=== PATIENT | female | born 1990 | race Two or more races ===

== ENCOUNTER 2024-04-24 06:09 | Outpatient (REF) | payer OTHER, SELFPAY | END 2024-04-24 06:10 | disposition home or self-care (01) | LOC: HO.UMASIMG 06:09 | PROVIDERS: Visit Provider Nurse Practitioner Women's Health | DX: Z13.89 Encounter for screening for other disorder (principal) ==

== ENCOUNTER 2024-04-26 06:59 | Outpatient (REF) | payer OTHER, SELFPAY ==
--- NOTE | ~2024-04-26 | US_ITS ---
CLINICAL HISTORY: HEAVY BLEEDING PELVIC PAIN (MOSTLY ON LT SIDE) US pelvis transabdominal and transvaginal Comparison: None Findings: Transabdominal scanning performed for overall anatomy. Transvaginal scanning performed for additional detail. Anteverted uterus is 7.7 cm length. Normal myometrium. Endometrium 3.2 mm thickness. Right ovary 2 x 1.4 x 2.5 cm. Left ovary 2.2 x 1.5 x 1 cm. Normal color Doppler of both ovaries. No free fluid. IMPRESSION: 1. Normal pelvic ultrasound This document has been electronically signed by: Francis Delcid MD on 04/27/2024 08:37:10
== END 2024-04-26 07:00 | disposition home or self-care (01) ==
LOC: HO.UMASIMG 06:59
PROVIDERS: Visit Provider Nurse Practitioner Women's Health
DX: N94.6 Dysmenorrhea, unspecified (principal); N92.0 Excessive and frequent menstruation with regular cycle
CPT/HCPCS: 76830; 76856

== ENCOUNTER → 2024-04-26 11:00 | Outpatient (BNV) | payer OTHER, SELFPAY | PROVIDERS: Visit Provider Specialist | DX: N92.0 Excessive and frequent menstruation with regular cycle (principal) | CPT/HCPCS: 76830; 76856 ==